=== PATIENT | male | born 1990 | race Caucasian/White ===

== ENCOUNTER 2018-12-08 15:53 | Emergency (ER) | payer OTHER ==
[~2018-12-08] VITALS: Ht 172.7 cm; Wt 68.0 kg
[~2018-12-08 15:53] MED LIST: ALBUTEROL2.5 MG/31 INH; HYDROCODON-ACE1 EAC7 PO; PERCOCET 5-3251 EACH PO
[2018-12-08] MEDS ORDERED: NORCO 5-325 TA1 EAC1 PO (17:49)
[2018-12-08 18:35] VITALS: BP 106/62
== END 2018-12-08 18:37 | disposition home or self-care (01) ==
LOC: M.ERS 15:53
DX: S43.015A Anterior dislocation of left humerus, initial encounter (principal); J45.909 Unspecified asthma, uncomplicated; Z87.442 Personal history of urinary calculi; X50.1XXA Overexertion from prolonged static or awkward postures, initial encounter; Y92.89 Other specified places as the place of occurrence of the external cause; Y93.61 Activity, american tackle football; Y99.8 Other external cause status